=== PATIENT | female | born 1965 | race Caucasian/White ===

== ENCOUNTER → 2016-05-01 | Outpatient (CLI) | payer BC ==
[~2016-05-01] MED LIST: NORCO 325 MG-51 TAB PO; ZOFRAN ODT4 MG PO
== END ==
LOC: MC.RAD 16:31
DX: Z12.31 Encounter for screening mammogram for malignant neoplasm of breast (principal); Z80.3 Family history of malignant neoplasm of breast

== ENCOUNTER → 2017-08-01 | Outpatient (CLI) | payer BC | LOC: MC.RAD 07:40 | DX: Z12.31 Encounter for screening mammogram for malignant neoplasm of breast (principal) ==

== ENCOUNTER → 2019-06-30 | Outpatient (CLI) | payer BC | LOC: MC.RAD 05-12 17:00 | DX: Z12.31 Encounter for screening mammogram for malignant neoplasm of breast (principal) ==

== ENCOUNTER → 2019-10-09 | Outpatient (CLI) | payer BC | LOC: ZCOL.LAB 17:44 | DX: U07.1 COVID-19 (principal) ==

== ENCOUNTER → 2021-08-01 | Outpatient (CLI) | payer BC | LOC: MC.RAD 16:42 | DX: Z12.31 Encounter for screening mammogram for malignant neoplasm of breast (principal) ==